=== PATIENT | male | born 1965 | race Caucasian/White ===

== ENCOUNTER 2016-08-22 17:03 | Emergency (ER) | payer OTHER ==
[~2016-08-22 17:03] MED LIST: ACETAMINOPHEN325 M1 PO; ADVAIR HFA115 MCG/21 INH; ATIVAN1 MG PO; DUONEB 2.5-0.5 M3 ML INH; GABAPENTIN 100100 MG PO; LEVAQUIN 500 M500 M5 PO; TRAMADOL 50 MG50 MG PO; [UNRECOGNIZED DRUG - REMARK]
[2016-08-22] MEDS ORDERED: NORFLEX100 MG PO (18:07)
[2016-08-22] MEDS ORDERED: MEDROLDOSEPACK PO (18:08)
[2016-08-22] MEDS ORDERED: MOBIC15 MG PO (18:09)
== END 2016-08-22 18:22 ==
LOC: ER 17:03
DX: S46.912A Strain of unspecified muscle, fascia and tendon at shoulder and upper arm level, left arm, initial encounter (principal); F17.210 Nicotine dependence, cigarettes, uncomplicated; E11.9 Type 2 diabetes mellitus without complications; J44.9 Chronic obstructive pulmonary disease, unspecified; G62.9 Polyneuropathy, unspecified; G56.02 Carpal tunnel syndrome, left upper limb; Z88.5 Allergy status to narcotic agent; X58.XXXA Exposure to other specified factors, initial encounter; Y93.89 Activity, other specified; Y92.89 Other specified places as the place of occurrence of the external cause; Y99.9 Unspecified external cause status